=== PATIENT | male | born 1945 | race Caucasian/White ===

== ENCOUNTER 2018-05-19 11:03 | Outpatient (CLI) | payer MEDICARE, OTHER ==
[2016-03-05 09:13] VITALS: BMI 27.8
[~2018-05-19 11:03] MED LIST: BAYER CHEWABLE81 MG PO; BETAPACE 80 MG80 MG PO; FOLIC ACID1 MG PO; HYTRIN5 MG PO; METHOTREXATE2.5 MG PO; PRAVASTATIN SOD10 MG PO; XARELTO15 MG PO; ZIAC 5-6.25 MG1 TAB PO; ZYLOPRIM300 MG PO
--- NOTE | 2018-05-19 11:20 | NUR ---
12 LEAD EKG DONE SHOWING SINUS BRADYCARDIA. PAGED PHYSICIAN TO INFORM.
[2018-05-19] MEDS ORDERED: MULTAQ400 MG PO (11:30)
--- NOTE | 2018-05-19 11:30 | NUR ---
SPOKE WITH PHYSICIAN REGARDING EKG RESULTS, PHYSICAN WILL CANCEL PROCEDURE. PATIENT INFORMED.
[2018-05-19] MEDS ORDERED: LANOXIN125 MCG PO (11:31)
== END 2018-05-19 11:30 ==
LOC: D.CATH 11:03
DX: I48.91 Unspecified atrial fibrillation (principal); Z01.810 Encounter for preprocedural cardiovascular examination; Z01.812 Encounter for preprocedural laboratory examination; Z53.9 Procedure and treatment not carried out, unspecified reason; R00.1 Bradycardia, unspecified

== ENCOUNTER 2019-06-21 09:00 | Outpatient (CLI) | payer MEDICARE, OTHER ==
[~2019-06-21] VITALS: Ht 182.9 cm; Wt 93.6 kg
[~2019-06-21 09:00] MED LIST changes: +DONEPEZIL HCL10 MG PO; +LANOXIN125 MCG PO; +MULTAQ400 MG PO; +PRAVACHOL20 MG PO; -PRAVASTATIN SOD10 MG PO; +PROBIOTIC BLEN1 EACH PO; +PROPAFENONE HC225 MG PO; +SMZ-TMP DS TABL1 TAB PO
[2019-06-21 09:26] LABS: BASOPHILS 0.7 % (0-2); EOSINOPHILS 1.9 % (0-7); HEMATOCRIT 43.4 % (42.0-54.0); HEMOGLOBIN 15.3 g/dL (13.5-17.5); IMMATURE GRANULOCYTES 0.1 % (0-5); LYMPHOCYTES 11.2 % (15-50); MCH 34.1 pg (26.0-34.0); MCHC 35.3 g/dL (31.0-37.0); MCV 96.7 fL (80.0-100.0); MEAN PLATELET VOLUME 9.6 fL (7.4-10.4); NEUTROPHILS 81.1 % (40-80); PLATELET COUNT 185 10x3/uL (130-400); RBC 4.49 10x6/uL (4.20-6.10); RDW 13.2 % (11.5-14.5); WBC 7.2 10x3/uL (4.8-10.8)
[2019-06-21 09:29] LABS: INR 0.99 (0.85-1.17); PROTIME 13.1 SECONDS (11.6-15.0)
[2019-06-21 09:31] LABS: CALCIUM 9.5 mg/dL (8.5-10.1); CARBON DIOXIDE 32.3 mmol/L (21.0-32.0); CREATININE - SERUM 1.5 mg/dL (0.6-1.3); POTASSIUM - SERUM 4.3 mmol/L (3.5-5.1)
[2019-06-21 09:56] VITALS: Ht 182.9 cm; Wt 93.6 kg
--- NOTE | 2019-06-21 12:04 | NUR ---
1140 PT RESTING WELL. MILD HIGH B/P. TOLERATING WATER. NO SWELLING OR BLEEDING NOTED. DENIES PAIN. COLOR GOOD. ORDERS NOTED AND TRAY ORDERED FROM DIETARY
--- NOTE | 2019-06-21 15:54 | NUR ---
1540 DRESSED, AWAKE & ALERT. RECEIVED D/C INFORMATION EARLIER FROM GRAHAM LAUREANO R.N.. PT & STATE THEY UNDERSTAND D/C INSTRUCTIONS. TO PRIVATE CAR PER WHEELCHAIR. HOME WITH MRS. GARZA. Diamond GALLAGHER R.N.
== END 2019-06-21 15:40 | disposition home or self-care (01) ==
LOC: D.CT 09:00
PROVIDERS: Specialist; ATTEND Urology
DX: R16.0 Hepatomegaly, not elsewhere classified (principal)

== ENCOUNTER → 2019-06-27 08:52 | Outpatient (CLI) | payer MEDICARE, OTHER ==
[2019-06-21 09:56] VITALS: BMI 28.0
== END | disposition home or self-care (01) ==
LOC: D.NM 08:52
PROVIDERS: ATTEND Urology
DX: C61 Malignant neoplasm of prostate (principal)